=== PATIENT | male | born 1970 | race Caucasian/White ===

== ENCOUNTER 2021-02-07 05:58 | Emergency (ER) | payer MEDICARE ==
[2021-02-07 06:25] VITALS: BP 110/70; PULSE 82; TEMP 97.6; BMI 31.9
== END 2021-02-07 08:47 | disposition home or self-care (01) ==
LOC: JER 05:58
DX: S09.90XA Unspecified injury of head, initial encounter (principal)
CPT/HCPCS: 99281-25

== ENCOUNTER 2021-08-15 00:30 | Inpatient (IN) | payer MEDICARE, OTHER ==
[2021-08-15 01:20] LABS: BASO % 0.2 % (0-2.0); EOS % 0.3 % (0-4.5); HEMATOCRIT 43.4 % (35.4-49); HEMOGLOBIN 14.5 GM/dL (11.7-16.9); LYMPH % 10.5 % (8-40); MCH 28.2 pg (25.7-33.7); MCHC 33.5 g/dl (32.0-35.9); MEAN CELL VOLUME 84.3 fl (80-96); MEAN PLT VOLUME 9.3 fl (7.5-11.1); MONO % 6.8 % (3.8-10.2); NEUT % 82.2 % (42.8-82.8); PLATELET COUNT 221 10^3/uL (134-434); RBC 5.16 M/mm3 (4.00-5.60); WHITE BLOOD COUNT 6.9 K/mm3 (4.0-10.0)
[2021-08-15 01:39] LABS: INR 1.2 (0.83-1.09); PROTHROMBIN TIME (PATIENT) 13.8 SEC (9.7-13.0)
[2021-08-15 01:45] LABS: CHLORIDE 106 mmol/L (98-107); SODIUM 140 mmol/L (136-145)
[2021-08-15 01:46] LABS: BLOOD UREA NITROGEN 23.8 mg/dL (7-18); CALCIUM 9.1 mg/dL (8.5-10.1); GLUCOSE,RANDOM 139 mg/dL (74-106)
[2021-08-15 01:48] LABS: ANION GAP 10 MMOL/L (8-16); CO2 24 mmol/L (21-32); MAGNESIUM 2.2 mg/dL (1.8-2.4)
[2021-08-15 01:51] LABS: CREATININE 1.3 mg/dL (0.55-1.3); SGOT/AST 15 U/L (15-37)
[2021-08-15 01:54] LABS: ALK PHOS 95 U/L (45-117); BILIRUBIN,TOTAL 0.5 mg/dL (0.2-1); SGPT/ALT 30 U/L (13-61); TOT PROT 7.9 g/dl (6.4-8.2)
[2021-08-15 02:13] LABS: LACTIC ACID 3.7 mmol/L (0.4-2.0)
[2021-08-15] MEDS ORDERED: SODIUM CHLORIDE 0.9% 500 ML INFUS.BAG IV ONE (02:16)
[2021-08-15] MEDS ORDERED: SODIUM CHLORIDE 1,000 ML IV STA (04:45)
[2021-08-15] MEDS ORDERED: LORazepam 2 MG/ML SDV VIAL IVPUSH ONE (05:45)
[2021-08-15] MEDS ORDERED: HALOPERIDOL LACTATE 5 MG/ML IM ONE (06:06)
[2021-08-15 06:40] LABS: URINE APPEARANCE CLEAR; URINE BILIRUBIN NEGATIVE (NEGATIVE); URINE COLOR DK YELLOW; URINE GLUCOSE (UA) NEGATIVE (NEGATIVE); URINE KETONE 1+ (NEGATIVE); URINE LEUK ESTERASE NEGATIVE (NEGATIVE); URINE NITRITE NEGATIVE (NEGATIVE); URINE PROTEIN TRACE (NEGATIVE); URINE UROBILINOGEN 0.2 mg/dL (0.2-1.0)
[2021-08-15 06:48] LABS: COCAINE, UR NEGATIVE (NEGATIVE); OPIATES, URI NEGATIVE (NEGATIVE); URINE AMPHETAMINES NEGATIVE (NEGATIVE); URINE BARBITURATES NEGATIVE (NEGATIVE)
[2021-08-15 06:49] LABS: METHADONE, UR NEGATIVE (NEGATIVE); PHENCYCLIDINE,URINE NEGATIVE (NEGATIVE); URINE BENZODIAZEPINES NEGATIVE (NEGATIVE)
[2021-08-15 07:17] LABS: HEMATOCRIT 42.2 % (35.4-49); HEMOGLOBIN 14.1 GM/dL (11.7-16.9); MCH 28.2 pg (25.7-33.7); MCHC 33.4 g/dl (32.0-35.9); MEAN CELL VOLUME 84.3 fl (80-96); MEAN PLT VOLUME 9.2 fl (7.5-11.1); PLATELET COUNT 199 10^3/uL (134-434); RBC 5.01 M/mm3 (4.00-5.60); RDW 14.9 % (11.9-15.9); WHITE BLOOD COUNT 6.5 K/mm3 (4.0-10.0)
[2021-08-15 07:45] LABS: ALBUMIN 3.9 g/dl (3.4-5.0); BLOOD UREA NITROGEN 25.5 mg/dL (7-18); CALCIUM 9.2 mg/dL (8.5-10.1)
[2021-08-15 07:49] LABS: BILIRUBIN,TOTAL 0.6 mg/dL (0.2-1); CREATININE 1.1 mg/dL (0.55-1.3); LACTIC ACID 3.5 mmol/L (0.4-2.0); PHOSPHOROUS 2.2 mg/dL (2.5-4.9); TOT PROT 7.5 g/dl (6.4-8.2)
[2021-08-15] MEDS ORDERED: POTASSIUM PHOSPHATE 30 MM in DEXTROSE 5%-WATER - 500 ML IVPB ONE ×2 (09:16→14:30)
[2021-08-15] MEDS ORDERED: ENOXAPARIN NA (PORCINE) 40 MG/0.4 ML DISP.SYRIN SQ ONE (09:20)
[2021-08-15] MEDS ORDERED: THIAMINE HCL 200 MG/2 ML VIAL IM ONE (09:37)
[2021-08-15] MEDS ORDERED: LORazepam 2 MG/ML SDV VIAL IM ONE (09:45)
[2021-08-15] MEDS: ENOXAPARIN NA (PORCINE) 40 MG/0.4 ML DISP.SYRIN SQ SCH (10:40)
[2021-08-15] MEDS ORDERED: THIAMINE HCL 200 MG/2 ML VIAL ONE (11:42)
[2021-08-15] MEDS ORDERED: SODIUM CHLORIDE 1,000 ML IV SCH (11:45)
[2021-08-15] MEDS: TETRAHYDROZOLINE HCL EYE DROPS OU PRN ×2 (11:56→23:30)
[2021-08-15] MEDS ORDERED: FOLIC ACID INJECTION - 1 MG, THIAMINE HCL 100 MG, MULTIVIT INJECTION ADULT 10 ML in SOD... IVPB ONE (13:00)
[2021-08-15] MEDS ORDERED: TIZANIDINE HCL 2 MG TABLET PO SCH (14:00)
[2021-08-15] MEDS ORDERED: PREGABALIN 100 MG CAPSULE PO SCH (14:00)
[2021-08-15] MEDS ORDERED: GABAPENTIN 300 MG CAPSULE PO SCH (14:00)
[2021-08-15] MEDS ORDERED: LORazepam 2 MG/ML SDV VIAL IVPUSH PRN ×2 (15:51→15:52)
[2021-08-15] MEDS ORDERED: HALOPERIDOL LACTATE 5 MG/ML ONE (20:46)
[2021-08-15] MEDS: HALOPERIDOL LACTATE 5 MG/ML IM PRN (20:58)
[2021-08-16] MEDS: HALOPERIDOL LACTATE 5 MG/ML IM PRN (08:39)
[2021-08-16 08:53] LABS: BASO % 0.5 % (0-2.0); EOS % 1.9 % (0-4.5); HEMATOCRIT 42.8 % (35.4-49); LYMPH % 15.9 % (8-40); MCH 27.5 pg (25.7-33.7); MCHC 32.8 g/dl (32.0-35.9); MEAN CELL VOLUME 83.8 fl (80-96); MEAN PLT VOLUME 9.6 fl (7.5-11.1); MONO % 10.4 % (3.8-10.2); NEUT % 71.3 % (42.8-82.8); PLATELET COUNT 237 10^3/uL (134-434); RBC 5.11 M/mm3 (4.00-5.60); RDW 15.1 % (11.9-15.9); WHITE BLOOD COUNT 6.7 K/mm3 (4.0-10.0)
[2021-08-16 09:31] LABS: ALBUMIN 3.8 g/dl (3.4-5.0)
[2021-08-16 09:33] LABS: BLOOD UREA NITROGEN 29.2 mg/dL (7-18); MAGNESIUM 2.4 mg/dL (1.8-2.4)
[2021-08-16 09:35] LABS: BILIRUBIN,TOTAL 0.7 mg/dL (0.2-1)
[2021-08-16 09:36] LABS: TOT PROT 7.4 g/dl (6.4-8.2)
[2021-08-16] MEDS: SODIUM CHLORIDE 1,000 ML IV SCH ×2 (11:15→18:50)
[2021-08-16] MEDS: ENOXAPARIN NA (PORCINE) 40 MG/0.4 ML DISP.SYRIN SQ SCH (11:17)
[2021-08-16] MEDS: GABAPENTIN 100 MG CAPSULE PO SCH ×2 (13:44→17:26)
[2021-08-16 15:30] VITALS: BMI 28.0
[2021-08-16] MEDS ORDERED: ARTIFICIAL TEARS (POLYVINYL ALCOHOL) OPTH DROPS OU PRN (17:38)
[2021-08-16] MEDS ORDERED: GABAPENTIN 100 MG CAPSULE PO SCH (19:25)
[2021-08-16] MEDS: MINERAL OIL/PETROLATUM,WHITE 3.5 GM TUBE OU SCH (22:17)
[2021-08-16] MEDS: GABAPENTIN 300 MG CAPSULE PO SCH (22:18)
[2021-08-16] MEDS: OLANZapine 10 MG TABLET PO SCH (22:18)
[2021-08-17 10:38] LABS: BASO % 0.4 % (0-2.0); EOS % 2.9 % (0-4.5); HEMOGLOBIN 12.8 GM/dL (11.7-16.9); LYMPH % 13.3 % (8-40); MCH 28.6 pg (25.7-33.7); MCHC 33.7 g/dl (32.0-35.9); MEAN CELL VOLUME 84.8 fl (80-96); MEAN PLT VOLUME 9.2 fl (7.5-11.1); MONO % 7.7 % (3.8-10.2); NEUT % 75.7 % (42.8-82.8); PLATELET COUNT 198 10^3/uL (134-434); RBC 4.48 M/mm3 (4.00-5.60); RDW 14.9 % (11.9-15.9); WHITE BLOOD COUNT 5.9 K/mm3 (4.0-10.0)
[2021-08-17 11:01] LABS: CALCIUM 8.8 mg/dL (8.5-10.1)
[2021-08-17 11:03] LABS: ALBUMIN 3.2 g/dl (3.4-5.0); BLOOD UREA NITROGEN 28.2 mg/dL (7-18); MAGNESIUM 2.1 mg/dL (1.8-2.4)
[2021-08-17 11:05] LABS: CREATININE 1.1 mg/dL (0.55-1.3); PHOSPHOROUS 2.7 mg/dL (2.5-4.9)
[2021-08-17 11:06] LABS: TOT PROT 6.4 g/dl (6.4-8.2)
[2021-08-17 11:07] LABS: BILIRUBIN,TOTAL 0.6 mg/dL (0.2-1)
[2021-08-17] MEDS: GABAPENTIN 300 MG CAPSULE PO SCH ×4 (11:35→22:49)
[2021-08-17] MEDS: ENOXAPARIN NA (PORCINE) 40 MG/0.4 ML DISP.SYRIN SQ SCH (11:36)
[2021-08-17] MEDS: OLANZapine 10 MG TABLET PO SCH (22:48)
[2021-08-17] MEDS: MINERAL OIL/PETROLATUM,WHITE 3.5 GM TUBE OU SCH (23:03)
[2021-08-18 09:14] LABS: BASO % 0.4 % (0-2.0); EOS % 3.5 % (0-4.5); HEMATOCRIT 38.6 % (35.4-49); HEMOGLOBIN 12.6 GM/dL (11.7-16.9); LYMPH % 23.4 % (8-40); MCH 27.5 pg (25.7-33.7); MCHC 32.6 g/dl (32.0-35.9); MEAN CELL VOLUME 84.5 fl (80-96); MEAN PLT VOLUME 9.4 fl (7.5-11.1); MONO % 9.4 % (3.8-10.2); NEUT % 63.3 % (42.8-82.8); PLATELET COUNT 212 10^3/uL (134-434); RBC 4.57 M/mm3 (4.00-5.60); RDW 14.6 % (11.9-15.9); WHITE BLOOD COUNT 5.7 K/mm3 (4.0-10.0)
[2021-08-18] MEDS: GABAPENTIN 300 MG CAPSULE PO SCH ×4 (09:18→22:26)
[2021-08-18] MEDS: ENOXAPARIN NA (PORCINE) 40 MG/0.4 ML DISP.SYRIN SQ SCH (09:18)
[2021-08-18 09:52] LABS: CALCIUM 8.8 mg/dL (8.5-10.1)
[2021-08-18 09:53] LABS: ALBUMIN 3.2 g/dl (3.4-5.0); MAGNESIUM 2.1 mg/dL (1.8-2.4)
[2021-08-18 09:55] LABS: CREATININE 0.9 mg/dL (0.55-1.3); PHOSPHOROUS 3.9 mg/dL (2.5-4.9); TOT PROT 6.3 g/dl (6.4-8.2)
[2021-08-18 09:56] LABS: BILIRUBIN,TOTAL 0.4 mg/dL (0.2-1)
[2021-08-18] MEDS: MINERAL OIL/PETROLATUM,WHITE 3.5 GM TUBE OU SCH (22:26)
[2021-08-18] MEDS: OLANZapine 10 MG TABLET PO SCH (22:26)
[2021-08-19] MEDS: GABAPENTIN 300 MG CAPSULE PO SCH ×4 (09:47→21:54)
[2021-08-19] MEDS: ENOXAPARIN NA (PORCINE) 40 MG/0.4 ML DISP.SYRIN SQ SCH (09:47)
[2021-08-19] MEDS: MINERAL OIL/PETROLATUM,WHITE 3.5 GM TUBE OU SCH (21:54)
[2021-08-19] MEDS: OLANZapine 10 MG TABLET PO SCH (21:54)
[2021-08-20] MEDS: ENOXAPARIN NA (PORCINE) 40 MG/0.4 ML DISP.SYRIN SQ SCH (09:44)
[2021-08-20] MEDS: GABAPENTIN 300 MG CAPSULE PO SCH ×4 (09:44→21:20)
[2021-08-20 09:57] LABS: BASO % 0.7 % (0-2.0); EOS % 3.2 % (0-4.5); HEMATOCRIT 38.5 % (35.4-49); HEMOGLOBIN 13.1 GM/dL (11.7-16.9); LYMPH % 19.2 % (8-40); MCH 28.3 pg (25.7-33.7); MEAN CELL VOLUME 83.4 fl (80-96); MONO % 9.1 % (3.8-10.2); NEUT % 67.8 % (42.8-82.8); PLATELET COUNT 222 10^3/uL (134-434); RBC 4.61 M/mm3 (4.00-5.60); RDW 14.6 % (11.9-15.9); WHITE BLOOD COUNT 5.7 K/mm3 (4.0-10.0)
[2021-08-20 10:26] LABS: CALCIUM 8.5 mg/dL (8.5-10.1)
[2021-08-20 10:27] LABS: ALBUMIN 3.1 g/dl (3.4-5.0)
[2021-08-20 10:30] LABS: BILIRUBIN,TOTAL 0.4 mg/dL (0.2-1); CREATININE 0.9 mg/dL (0.55-1.3)
[2021-08-20 10:31] LABS: TOT PROT 6.4 g/dl (6.4-8.2)
[2021-08-20] MEDS: MINERAL OIL/PETROLATUM,WHITE 3.5 GM TUBE OU SCH (21:20)
[2021-08-20] MEDS: OLANZapine 10 MG TABLET PO SCH (21:20)
[2021-08-21] MEDS: ENOXAPARIN NA (PORCINE) 40 MG/0.4 ML DISP.SYRIN SQ SCH (11:14)
[2021-08-21] MEDS: GABAPENTIN 300 MG CAPSULE PO SCH ×2 (11:15→13:52)
[2021-08-21 13:29] VITALS: TEMP 98.1
[2021-08-21 15:22] VITALS: BP 116/74; PULSE 92
== END 2021-08-21 16:13 | disposition home or self-care (01) | DRG 917 ==
LOC: JER 00:30 → JERBED 03:27 → J5S 08-16 02:49
PROVIDERS: ADMIT Internal Medicine; ATTEND Internal Medicine
DX: T43.642A Poisoning by ecstasy, intentional self-harm, initial encounter (principal); G92.9 Unspecified toxic encephalopathy; E87.2 Acidosis; Y92.89 Other specified places as the place of occurrence of the external cause; G93.89 Other specified disorders of brain; R41.82 Altered mental status, unspecified; F32.A Depression, unspecified
CPT/HCPCS: 36415; 70450-TC; 71045-TC-FY; 80053; 80061; 80307; 81003; 82140; 82550; 82553; 82607; 82962; 83605; 83735; 84100; 84443; 84484; 85025; 85027; 85610; 86780; 86850; 86900; 86901; 87086; 93005; 93010; 97116-GP; 97162-GP; 99285-25; C9803; U0003; U0005